=== PATIENT | female | born 1990 | race Caucasian/White ===

== ENCOUNTER 2016-07-22 06:30 | Emergency (ER) | payer BC ==
[2016-07-22 06:52] VITALS: TEMP 97.9; BMI 25.4
--- NOTE | 2016-07-22 07:00 | PDOC ---
History of Present Illness - General Chief Complaint: Pain Stated Complaint: CHEST PAIN Time Seen by Provider: 07/22/16 06:47 - History of Present Illness Initial Comments: 07/22/16 07:09 this 26-year-old woman with a history of SLE and migraine headaches presents with few hour history of substernal chest pain. Patient states that she awakened with feeling of pressure in the mid substernal area that worsens with deep breathing. She has no cough or shortness of breath. She denies fever/ chills. Patient had recently (approximately one week ago) been started on Arava for a lupus flare approximately 10 days ago. Up until now, the patient had no side effects. Last night, patient had approximately 2 ounces of vodka while socializing with friends. She states that she had no other recreational drugs. She attempted to hydrate well after drinking the alcohol. Also of note , patient was exposed to influenza: Mother, with whom patient lives was diagnosed with influenza approximately one week ago (too late to start Tamiflu) . Patient was unable to obtain prophylaxis dose of Tamiflu. Patient denies nausea/vomiting/diarrhea or other gastrointestinal symptoms. No new joint pain or swelling Past History - Past Medical History Allergies/Adverse Reactions: Allergies Allergy/AdvReac Type Severity Reaction Status Date / Time furosemide [From Lasix] Allergy Severe Anphylactoid Verified 07/22/16 06:37 Reaction. Sulfa (Sulfonamide Allergy Mild Verified 07/22/16 06:37 Antibiotics) Home Medications: Ambulatory Orders Folic Acid 1 mg PO HS 07/22/16 Leflunomide 10 mg PO HS 07/22/16 Magnesium Oxide [Magnesium] 500 mg PO 07/22/16 Prednisone [Deltasone -] 20 mg PO DAILY 07/22/16 Riboflavin 400 mg PO HS 07/22/16 Topiramate [Topamax -] 300 mg PO HS 07/22/16 Other medical history: LUPUS/MIGRAINE - Immunization History Td Vaccination: Yes Immunization Up to Date: Yes - Psycho/Social/Smoking Cessation Hx Anxiety: No Suicidal Ideation: No Smoking Status: No Smoking History: Never smoked Have you smoked in the past 12 months: No Number of Cigarettes Smoked Daily: 0 Information on smoking cessation initiated: No Hx Alcohol Use: Yes (OCCAS.) Drug/Substance Use Hx: No Substance Use Type: None Review of Systems - Review of Systems Able to Perform ROS?: Yes Comments:: 12 point review of systems is negative except for what is noted in the history of present illness *Physical Exam - Vital Signs Last Vital Signs Temp Pulse Resp BP Pulse Ox 97.9 F 93 H 16 117/69 97 07/22/16 06:48 07/22/16 06:48 07/22/16 06:48 07/22/16 06:48 07/22/16 06:48 - Physical Exam Comments: GENERAL: Adult female, alert and oriented 3, in no acute distress; she speaking in full sentences without respiratory distress Vital signs as noted with oxygenation 96% on room air HEAD: Normal with no signs of trauma. EYES: PERRLA, EOMI, sclera anicteric, conjunctiva clear. ENT: Ears normal, nares patent, oropharynx clear without exudates. Dry mucous membranes. NECK: Normal range of motion, supple without lymphadenopathy, JVD, or masses. LUNGS: Breath sounds equal, clear to auscultation bilaterally. No wheezes, and no crackles. No rubs heard; no significant chest wall tenderness HEART:Regular rate and rhythm, normal S1 and S2 without murmur, rub or gallop. ABDOMEN:.normal bowel sounds No guarding,tenderness or rebound.No masses No distention. EXTREMITIES: Normal range of motion, no edema. No clubbing or cyanosis. No erythema, or tenderness. NEUROLOGICAL: Cranial nerves II through XII grossly intact. Normal speech. No focal neurological deficits. MUSCULOSKELETAL: Back non-tender to palpation, no CVA tenderness SKIN: Warm, Dry, normal turgor, no rashes or lesions noted. Twelve-lead electrocardiogram shows normal sinus rhythm at 76 bpm. There is some sinus arrhythmia but no other arrhythmia noted. Huntley, intervals and wave forms are all normal ED Treatment Course - LABORATORY CBC & Chemistry Diagram: 07/22/16 07:16 07/22/16 07:16 Medical Decision Making - Medical Decision Making 07/22/16 07:15 This 26-year-old woman with SLE, on immunosuppressive medication presents with malaise and mid chest pain with some aspect of pleuritic component. CBC/chemistry profile/d-dimer/cardiac enzymes/urinalysis and PGU will be sent PGU/urinalysis also will be obtained. Case signed out to incoming physician at end of shift. *DC/Admit/Observation/Transfer Diagnosis at time of Disposition: Chest pain in adult - Discharge Dispostion Disposition: HOME Condition at time of disposition: Stable - Patient Instructions Printed Discharge Instructions: DI for Atypical Chest Pain Additional Instructions: Fluids, rest, Motrin If worsen return to ER
--- NOTE | 2016-07-22 07:57 | PDOC ---
*Physical Exam - Vital Signs Last Vital Signs Temp Pulse Resp BP Pulse Ox 97.9 F 93 H 16 117/69 97 07/22/16 06:48 07/22/16 06:48 07/22/16 06:48 07/22/16 06:48 07/22/16 06:48 - Physical Exam General Appearance: Yes: Nourished, Appropriately Dressed HEENT: positive: EOMI, LEILANI, Normal ENT Inspection, Normal Voice Neck: positive: Trachea midline, Normal Thyroid, Supple Respiratory/Chest: positive: Lungs Clear, Normal Breath Sounds, Other (non reproducible chst pain on palpation) Cardiovascular: positive: Regular Rhythm, Regular Rate, S1, S2 Vascular Pulses: Femoral (R): 4+, Femoral (L): 4+, Carotid (R): 4+, Carotid (L) : 4+, Dorsalis-Pedis (R): 4+, Doralis-Pedis (L): 4+ Gastrointestinal/Abdominal: positive: Normal Bowel Sounds, Flat, Soft. negative : Tender, Organomegaly, Pulsatile Mass Musculoskeletal: positive: Normal Inspection. negative: CVA Tenderness Extremity: positive: Normal Capillary Refill, Normal Inspection, Normal Range of Motion. negative: Pedal Edema, Swelling, Calf Tenderness Integumentary: positive: Normal Color, Dry, Warm Neurologic: positive: road conductor II-XII NML intact, Fully Oriented, Normal Mood/Affect , Normal Response, Motor Strength 5/5 ED Treatment Course - LABORATORY CBC & Chemistry Diagram: 07/22/16 07:16 07/22/16 07:16 Progress Note - Progress Note Progress Note: 26 y/o female with hx of SLE, presents to ER with chest pain since this morning. Patient seen and worked up by Dr. Kirkland. Patient denies SOB, fever or chills. No N/V/d/C. No leg pain. No long trips. Recent change in her SLE medication last week. Patient exposed to the FLU last week as well. D-dimer positive, Troponin negative, CT chest negative for PE or acute pathaology Discussed with pt, will discharge home with follow up with PMD Pt is in agreement with plan *DC/Admit/Observation/Transfer Diagnosis at time of Disposition: Chest pain in adult - Discharge Dispostion Disposition: HOME Condition at time of disposition: Stable Admit: No - Patient Instructions Printed Discharge Instructions: DI for Atypical Chest Pain Additional Instructions: Fluids, rest, Motrin If worsen return to ER
[2016-07-22 08:20] LABS: ALBUMIN 4.1 g/dl (3.4-5.0); ANION GAP 7 (8-16); BILIRUBIN,TOTAL 0.3 mg/dL (0.2-1.0); CALCIUM 9.3 mg/dL (8.5-10.1); CO2 26 mmol/L (21-32); COCKROFT - GAULT 88.1705; CREATININE 0.9 mg/dL (0.55-1.02); GLUCOSE,RANDOM 92 mg/dL (74-106); SGOT/AST 22 U/L (15-37); SGPT/ALT 26 U/L (12-78); TOT PROT 7.2 g/dl (6.4-8.2)
[2016-07-22 08:21] LABS: ALK PHOS 83 U/L (45-117)
[2016-07-22 08:24] LABS: CPK(DFH) 112 IU/L (26-140)
[2016-07-22 08:25] LABS: TROPONIN I (DFP) < 0.03 ng/ml (0.03-0.50)
[2016-07-22] MEDS ORDERED: ACETAMINOPHEN 325 MG TABLET (FP) PO ONE (08:51)
[2016-07-22] MEDS ORDERED: ACETAMINOPHEN 325 MG TABLET (FP) ONE (08:52)
[2016-07-22] MEDS ORDERED: SODIUM CHLORIDE 1,000 ML IV STA (08:53)
[2016-07-22 09:21] LABS: MCHC 32.6 g/dl (32.0-36.0); MEAN CELL VOLUME 86.1 fl (80-96); PLATELET COUNT 236 K/MM3 (134-434); RDW 14.8 % (11.6-15.6); WHITE BLOOD COUNT 6.9 K/mm3 (4.0-10.0)
[2016-07-22 09:22] LABS: BASOPHIL 0.7 % (0-2.0); EOSINOPHIL 0.5 % (0-4.5); MEAN PLT VOLUME 8.5 fl (7.5-11.1)
[2016-07-22] MEDS ORDERED: KETOROLAC TROMETHAMINE 30 MG/1 ML VIAL ONE (10:05)
[2016-07-22] MEDS ORDERED: KETOROLAC TROMETHAMINE 30 MG/1 ML VIAL IVPUSH ONE (10:05)
--- NOTE | 2016-07-22 10:37 | EKG ---
Test Reason : Blood Pressure : / mmHG Vent. Rate : 076 BPM Atrial Rate : 076 BPM P-R Int : 130 ms QRS Dur : 086 ms QT Int : 386 ms P-R-T Axes : 028 025 018 degrees QTc Int : 434 ms NORMAL SINUS RHYTHM WITH SINUS ARRHYTHMIA NORMAL ECG NO PREVIOUS ECGS AVAILABLE Confirmed by DEBORAH ADAMSON MD ([id number]) on 07/22/2016 10:37:29 AM Referred By: MD MAURICE Confirmed By:DEBORAH ADAMSON MD
[2016-07-22 11:31] VITALS: BP 108/70; PULSE 79
[2016-07-22 13:55] LABS: URINE APPEARANCE CLOUDY; URINE BILIRUBIN NEGATIVE (NEGATIVE); URINE BLOOD NEGATIVE (NEGATIVE); URINE COLOR YELLOW; URINE GLUCOSE (UA) NEGATIVE (NEGATIVE); URINE KETONE NEGATIVE (NEGATIVE); URINE LEUK ESTERASE NEGATIVE (NEGATIVE); URINE NITRITE NEGATIVE (NEGATIVE); URINE PROTEIN NEGATIVE (NEGATIVE); URINE UROBILINOGEN NEGATIVE E.U./dl (0.2-1.0)
== END 2016-07-22 11:32 | disposition home or self-care (01) ==
LOC: FER 06:30
PROC: 3E0333Z Introduction of Anti-inflammatory into Peripheral Vein, Percutaneous Approach (ICD-10-PCS; principal; 2016-07-22)
PROC: 3E0337Z Introduction of Electrolytic and Water Balance Substance into Peripheral Vein, Percutaneous Approach (ICD-10-PCS; 2016-07-22)
DX: R07.9 Chest pain, unspecified (principal); M32.9 Systemic lupus erythematosus, unspecified
CPT/HCPCS: 36415; 71275-TC; 80053; 81003; 82550; 84484; 84703; 85025; 85379; 87804; 93005; 99283-25

== ENCOUNTER 2016-08-19 04:48 | Emergency (ER) | payer BC ==
[2016-08-19 05:02] VITALS: BP 116/61; PULSE 94; TEMP 97.1; BMI 26.2
--- NOTE | 2016-08-19 05:06 | PDOC ---
History of Present Illness - General Chief Complaint: Pain, Acute Stated Complaint: ABDOMINAL PAIN, DIARRHEA Time Seen by Provider: 08/19/16 05:05 History Source: Patient Exam Limitations: No Limitations - History of Present Illness Initial Comments: 08/19/16 05:12 This is a 26-year-old female with history of lupus was a frequent visitor here. Patient said she woke up approximately 3 AM with right-sided abdominal pain and explosive diarrhea. Patient is had 4 episodes of diarrhea. Patient said pain is right-sided and radiates to her flank and her right groin. Patient denies any frequency or dysuria. Patient denies any hematuria. Patient denies history of similar symptoms past.. Patient denies any fevers or chills. Last time patient had any diarrhea was just prior to arrival. PAST MEDICAL HISTORY: Lupus PAST SURGICAL HISTORY: no significant history FAMILY HISTORY: no pertinant history SOCIAL HISTORY: Pt lives with family and is employed. MEDICATIONS: reviewed ALLERGIES: As per nursing notes Review of Systems General: No fevers or chills, no weakness, no weight loss HEENT: No change in vision. No sore throat,. No ear pain CardioVascular: No chest pain or shortness of breath Respiratory:No cough, or wheezing. Gastrointestinal: Nausea, diarrhea, abdominal pain. No vomiting Genitourinary: No dysuria, hematuria, or frequency Musculoskeletal: No joint or muscle pain or swelling Neurologic: No headache, vertigo, dizziness or loss of consciousness Psychiatric: nor depression Skin: No rashes or easy bruising Endocrine: no increased thirst or abnormal weight change Allergic: no skin or latex allergy All other systems reviewed and normal Exam: General: Well-nourished well-developed individual, no acute distress HEENT: Throat: Normal, tonsils normal, no erythema or exudate Neck: Supple, no meningeal signs, no lymphadenopathy Eyes::Pupils equal reactive and round, extraocular motion intact Chest: Nontender to palpation Cardiac: S1-S2 normal, regular rate and rhythm, no murmurs rubs or gallops Respiratory: Lungs clear to auscultation bilateral Abdomen: Soft, nondistended, normal bowel sounds, there is some mild tenderness on palpation right lower quadrant. There is no guarding or rebound. Extremities: Warm, dry, no cyanosis, clubbing, or edema Skin: No rashes Neuro: Alert and oriented x3, nonfocal exam, grossly intact, normal gait Psych: Normal mood and affect 08/19/16 06:36 Assessment and plan: This is a 26-year-old female who comes in complaining of abdominal pain and diarrhea. Patient given some fluid here and antiemetics. Patient also given Imodium. Patient is somewhat improved. Patient had a workup done that reveals a normal white count and normal labs and normal urinalysis. Patient is not . Patient discharged will follow-up with her primary care doctor. Past History - Past Medical History Allergies/Adverse Reactions: Allergies Allergy/AdvReac Type Severity Reaction Status Date / Time furosemide [From Lasix] Allergy Severe Anphylactoid Verified 08/19/16 04:53 Reaction. Sulfa (Sulfonamide Allergy Mild Verified 08/19/16 04:53 Antibiotics) Home Medications: Ambulatory Orders Leflunomide 10 mg PO HS 07/22/16 Magnesium Oxide [Magnesium] 500 mg PO HS 07/22/16 Prednisone [Deltasone -] 20 mg PO DAILY 07/22/16 Riboflavin 400 mg PO HS 07/22/16 Topiramate [Topamax -] 300 mg PO HS 07/22/16 Other medical history: LUPUS - Immunization History Td Vaccination: Yes Immunization Up to Date: Yes - Psycho/Social/Smoking Cessation Hx Anxiety: No Suicidal Ideation: No Smoking Status: No Smoking History: Never smoked Have you smoked in the past 12 months: No Number of Cigarettes Smoked Daily: 0 Information on smoking cessation initiated: No Hx Alcohol Use: No Drug/Substance Use Hx: No Substance Use Type: None *Physical Exam - Vital Signs Last Vital Signs Temp Pulse Resp BP Pulse Ox 97.1 F L 94 H 18 116/61 100 08/19/16 04:56 08/19/16 04:56 08/19/16 04:56 08/19/16 04:56 08/19/16 04:56 ED Treatment Course - LABORATORY CBC & Chemistry Diagram: 08/19/16 05:15 08/19/16 05:15 *DC/Admit/Observation/Transfer Diagnosis at time of Disposition: Diarrhea Qualifiers: Diarrhea type: unspecified type Qualified Code(s): R19.7 - Diarrhea, unspecified - Discharge Dispostion Disposition: HOME Condition at time of disposition: Stable Admit: No - Patient Instructions Additional Instructions: Purchase some [id number] Imodium and take as directed on the box. Return to the emergency department immediately with ANY new, persistent or worsening symptoms. Continue any medications as previously prescribed by your physician. You should follow up with your primary doctor as soon as possible regarding today's emergency department visit. . Please make sure your doctor reviews the results of your emergency evaluation. Thank you for coming to the Emergency Department today for your care. It was a pleasure to see you today. Please note that your evaluation is INCOMPLETE until you follow-up with your doctor.
[2016-08-19] MEDS ORDERED: ONDANSETRON 4 MG/2 ML VIAL IVPB ONE (05:10)
[2016-08-19] MEDS ORDERED: morphine CARPU-JECT 2 MG/1 ML DISP.SYRIN IVPUSH ONE (05:10)
[2016-08-19] MEDS ORDERED: SODIUM CHLORIDE 1,000 ML IV ONE (05:10)
[2016-08-19] MEDS ORDERED: ONDANSETRON 4 MG/2 ML VIAL ONE (05:19)
[2016-08-19] MEDS ORDERED: morphine CARPU-JECT 2 MG/1 ML DISP.SYRIN ONE (05:19)
[2016-08-19 05:56] LABS: BASOPHIL 1.1 % (0-2.0); EOSINOPHIL 3.4 % (0-4.5); MCH 27.4 pg (25.7-33.7); MCHC 31.9 g/dl (32.0-36.0); MEAN CELL VOLUME 85.9 fl (80-96); NEUTROPHILS 51.2 % (42.8-82.8); PLATELET COUNT 230 K/MM3 (134-434); RDW 13.3 % (11.6-15.6); WHITE BLOOD COUNT 6.5 K/mm3 (4.0-10.0)
[2016-08-19 05:59] LABS: URINE APPEARANCE CLOUDY; URINE BILIRUBIN NEGATIVE (NEGATIVE); URINE COLOR AMBER; URINE GLUCOSE (UA) NEGATIVE (NEGATIVE); URINE KETONE NEGATIVE (NEGATIVE); URINE LEUK ESTERASE NEGATIVE (NEGATIVE); URINE NITRITE NEGATIVE (NEGATIVE); URINE PROTEIN NEGATIVE (NEGATIVE); URINE UROBILINOGEN NEGATIVE E.U./dl (0.2-1.0)
[2016-08-19 06:01] LABS: URINE BLOOD 1+ (NEGATIVE)
[2016-08-19 06:24] LABS: ALBUMIN 3.5 g/dl (3.4-5.0); ALK PHOS 72 U/L (45-117); ANION GAP 5 (8-16); BILIRUBIN,TOTAL 0.3 mg/dL (0.2-1.0); CALCIUM 8.6 mg/dL (8.5-10.1); CO2 27 mmol/L (21-32); GLUCOSE,RANDOM 83 mg/dL (74-106); SGOT/AST 19 U/L (15-37); SGPT/ALT 22 U/L (12-78); TOT PROT 6.1 g/dl (6.4-8.2)
[2016-08-19] MEDS ORDERED: LOPERAMIDE HCL 2 MG CAPSULE PO ONE (06:34)
[2016-08-19] MEDS ORDERED: HYOSCYAMINE SULFATE 0.125 MG *ODT PO ONE (06:35)
[2016-08-19] MEDS ORDERED: HYOSCYAMINE SULFATE 0.125 MG *ODT ONE (06:36)
[2016-08-19] MEDS ORDERED: LOPERAMIDE HCL 2 MG CAPSULE ONE (06:37)
== END 2016-08-19 06:47 | disposition home or self-care (01) ==
LOC: FER 04:48
PROC: 3E033NZ Introduction of Analgesics, Hypnotics, Sedatives into Peripheral Vein, Percutaneous Approach (ICD-10-PCS; principal; 2016-08-19)
PROC: 3E033GC Introduction of Other Therapeutic Substance into Peripheral Vein, Percutaneous Approach (ICD-10-PCS; 2016-08-19)
PROC: 3E0337Z Introduction of Electrolytic and Water Balance Substance into Peripheral Vein, Percutaneous Approach (ICD-10-PCS; 2016-08-19)
DX: R19.7 Diarrhea, unspecified (principal)
CPT/HCPCS: 36415; 80053; 81003; 81015; 83690; 84703; 85025; 87086; 99283-25

== ENCOUNTER 2017-05-07 08:56 | Inpatient (IN) | payer OTHER ==
--- NOTE | 2017-05-07 09:15 | PDOC ---
History of Present Illness - General Chief Complaint: Nausea/Vomiting Stated Complaint: back pain,nausea,vom Time Seen by Provider: 05/07/17 09:14 - History of Present Illness Initial Comments: 05/07/17 10:40 Chief complaint: Nausea and vomiting History of present illness: Since yesterday, the patient is experienced mild nausea, vomiting, diffuse muscle and joint pains, right sided posterior chest pain which is pleuritic in nature and bilateral low back pain. She has taken no new medications for these symptoms other than Zofran for nausea Review of systems: Denies fever/chills, URI symptoms, sore throat, cough, shortness of breath, hematemesis, melena, bloody stool, diarrhea, vaginal bleeding or discharge. Admits mild dysuria and frequency. Past medical history: Lupus with primarily joint involvement in the past, has been on multiple medications that were poorly tolerated, is under the care of a survey project manager, most recent medication has been prednisone 5 mg and CellCept. Works as a nurse, direct patient care, but no known exposure to specific illnesses. Menses regular, no prior pregnancies, due for menstruation now. Social history: Works as a nurse, denies tobacco alcohol or nonprescription drugs, ambulatory and without significant disability. Family history: Reviewed and noncontributory including early coronary artery disease, metabolic diseases including diabetes, rheumatologic disease, and cancer. Physical exam: Alert oriented 3 well-developed well-nourished no acute distress Afebrile, vital signs normal No pallor or icterus. PERRLA, fundi benign, ENT clear Neck supple without bruit mass or nodes Lungs with possible decreased breath sounds at the right base and dullness to percussion. No wheezes rales or rhonchi CV S1 and S2 normal without murmur rub or gallop pulses full and symmetric no JVD or edema Abdomen soft nontender without mass or organomegaly. Bowel sounds normal Extremities no CCE. Specifically, no acute joint inflammation, erythema, or heat. The patient complains of stiffness in the fingers bilaterally. Neurological C2 to 12 intact. No focal sensory or motor deficits. Gait stable and unimpaired Skin clear, no rash, adequate turgor and wet mucous membranes Impression: This may be a flareup of lupus or an acute viral illness, possibly gastroenteritis with chronic intermittent muscle and joint pains. No pleuritic chest pain could be due to pneumonia or lupus involvement, pleurisy. Urinary tract symptoms could signify UTI. Plan: CBC chemistries and sedimentation rate, urinalysis and urine culture, chest x-ray, and further medical evaluation Past History - Past Medical History Allergies/Adverse Reactions: Allergies Allergy/AdvReac Type Severity Reaction Status Date / Time furosemide [From Lasix] Allergy Severe Anphylactoid Verified 05/07/17 08:58 Reaction. Sulfa (Sulfonamide Allergy Mild Verified 05/07/17 08:58 Antibiotics) Home Medications: Ambulatory Orders predniSONE [Deltasone -] 5 mg PO DAILY 07/22/16 Mycophenolate Mofetil [Cellcept] 2,000 mg PO DAILY 05/07/17 Ondansetron [Zofran *Odt*] 8 mg SL PRN PRN 05/07/17 COPD: No - Immunization History Td Vaccination: Yes Immunization Up to Date: Yes - Suicide/Smoking/Psychosocial Hx Smoking Status: No Smoking History: Never smoked Have you smoked in the past 12 months: No Number of Cigarettes Smoked Daily: 0 Hx Alcohol Use: No Drug/Substance Use Hx: No Substance Use Type: None ED Treatment Course - LABORATORY CBC & Chemistry Diagram: 05/07/17 10:04 05/07/17 09:59 Medical Decision Making - Medical Decision Making 05/07/17 11:08 Patient states that she was experiencing a migraine headache on the right side, usual manifestations, but did not want any treatment Subsequently, developed halting speech and generalized tremor which appeared to be seizure activity. She became confused and unable to respond to questions in a coherent manner. Ativan was administered and CT was ordered. Questionable migraine-related neurological symptoms versus exacerbation of lupus with TAPEMAN involvement. 05/07/17 11:28 Chest x-ray is clear. The patient has had similar pain in the past, with elevated d-dimer, but chest CT for pulmonary embolus was negative - June 2016. 05/07/17 12:27 Patient still with mild to moderate headache, but neurological symptoms resolved , alert and coherent. Head CT is negative. Despite frequent migraines in the past, and her occupation as a nurse, she is not sure or is unwilling to provide information regarding what medication have been helpful in the past. Discussed with her the use of anti-inflammatories or narcotics. She wishes to try Toradol first 05/07/17 14:33 Patient states that she is still having a headache and still feels left-sided weakness. She does not feel that she can stand or ambulate. CBC, chemistries, and sedimentation rate without significant abnormalities. Admit [facility] for observation and further treatment. Spoke with hospitalist, Dr. Reeder, and consultation called to neurology, Dr. Montejo. Patient clinically stable, hemodynamically stable, at time of transfer. 05/07/17 15:22 05/07/17 18:01 *DC/Admit/Observation/Transfer Diagnosis at time of Disposition: Migraine Qualifiers: Migraine type: hemiplegic Status migrainosus presence: without status migrainosus Intractability: not intractable Qualified Code(s): G43.409 - Hemiplegic migraine, not intractable, without status migrainosus - Discharge Dispostion Admit: Yes - Referrals - Patient Instructions - Post Discharge Activity
[2017-05-07 09:43] VITALS: BMI 24.7
[2017-05-07 10:19] LABS: BASO % 0.9 % (0-2.0); EOS % 1.4 % (0-4.5); HEMATOCRIT 39.2 % (32.4-45.2); HEMOGLOBIN 13.1 GM/dl (10.7-15.3); LYMPH % 23.5 % (8-40); MCH 27.7 pg (25.7-33.7); MCHC 33.5 g/dl (32.0-36.0); MEAN CELL VOLUME 82.7 fl (80-96); MEAN PLT VOLUME 8.4 fl (7.5-11.1); MONO % 6.4 % (3.8-10.2); NEUT % 67.8 % (42.8-82.8); PLATELET COUNT 181 K/MM3 (134-434); RBC 4.74 M/mm3 (3.60-5.2); RDW 13.6 % (11.6-15.6); WHITE BLOOD COUNT 7.7 K/mm3 (4.0-10.8)
[2017-05-07 10:29] LABS: URINE APPEARANCE Clear; URINE BILIRUBIN Negative (NEGATIVE); URINE BLOOD 1+ (NEGATIVE); URINE COLOR YELLOW; URINE GLUCOSE (UA) Negative (NEGATIVE); URINE KETONE Negative (NEGATIVE); URINE LEUK ESTERASE Negative (NEGATIVE); URINE NITRITE Negative (NEGATIVE); URINE PROTEIN Negative (NEGATIVE); URINE UROBILINOGEN 0.2 (0.2-1.0)
[2017-05-07 10:44] LABS: ALBUMIN 3.6 g/dl (3.5-5.0); ALK PHOS 36 U/L (32-92); ANION GAP 4 (8-16); BILIRUBIN,TOTAL 0.6 mg/dl (0.2-1.0); BLOOD UREA NITROGEN 15 mg/dl (7-18); CALCIUM 8.4 mg/dl (8.4-10.2); CHLORIDE 105 mmol/L (98-107); CO2 26 mmol/L (22-28); CREATININE 0.9 mg/dl (0.6-1.3); GLUCOSE,RANDOM 85 mg/dl (74-106); SGOT/AST 20 U/L (10-42); SGPT/ALT 14 U/L (10-40); SODIUM 135 mmol/L (136-145); TOT PROT 5.5 g/dl (6.4-8.3)
[2017-05-07] MEDS ORDERED: LORazepam 2 MG/ML SDV VIAL ONE (11:03)
[2017-05-07 11:55] LABS: EPI CELLS FEW /HPF; URINE WBC 0-3 (0-5)
[2017-05-07 11:56] LABS: URINE BACTERIA NONE SEEN /hpf (NEGATIVE)
[2017-05-07] MEDS ORDERED: ONDANSETRON 4 MG/2 ML VIAL IVPB ONE (12:18)
[2017-05-07] MEDS ORDERED: KETOROLAC TROMETHAMINE 30 MG/1 ML VIAL IVPUSH ONE (12:18)
[2017-05-07] MEDS ORDERED: KETOROLAC TROMETHAMINE 30 MG/1 ML VIAL ONE (12:28)
[2017-05-07] MEDS ORDERED: ONDANSETRON 4 MG/2 ML VIAL ONE (12:28)
[2017-05-07] MEDS ORDERED: ACETAMINOPHEN INJECTION 100 ML IVPB ONE (13:46)
[2017-05-07] MEDS ORDERED: morphine CARPU-JECT 2 MG/1 ML DISP.SYRIN IVPUSH ONE (15:06)
[2017-05-07] MEDS ORDERED: morphine CARPU-JECT 2 MG/1 ML DISP.SYRIN ONE (15:06)
[2017-05-07] MEDS ORDERED: DEXTROSE 5%-NORMAL SALINE 1,000 ML IV SCH (15:15)
[2017-05-07] MEDS ORDERED: amLODIPine BESYLATE 5 MG TABLET (FP) PO SCH (18:00)
[2017-05-07] MEDS ORDERED: HYDROmorphone HCL CARPU-JECT 1 MG/1 ML DISP.SYRIN IVPUSH ONE (18:18)
[2017-05-07] MEDS ORDERED: morphine SULFATE 4 MG/ML VIAL IVPUSH ONE ×2 (18:44→22:09)
--- NOTE | 2017-05-07 18:55 | HP ---
<Estrada Davidson - Last Filed: 05/07/17 19:04> CHIEF COMPLAINT: severe headache 12/03 PCP: HISTORY OF PRESENT ILLNESS: The patient is a 27 yo f w/ PMH lupus on cellcept at home and unable to tolerate any other medication who presented to the ER w/ complaints of generalized pain. During the course of her evaluation, the patient developed stuttering speech and became incoherent. She then developed left sided hemiparesis and lost vision in her left eye. 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 PAST SURGICAL HISTORY: none Social History: Smoking: denies Alcohol: denies Drugs: denies Family History: non-contributory Allergies furosemide [From Lasix] Allergy (Severe, Verified 05/07/17 08:58) Anphylactoid Reaction. Sulfa (Sulfonamide Antibiotics) Allergy (Mild, Verified 05/07/17 08:58) HOME MEDICATIONS: Home Medications Medication Instructions Recorded predniSONE [Deltasone -] 5 mg PO DAILY 07/22/16 Mycophenolate Mofetil [Cellcept] 2,000 mg PO DAILY 05/07/17 Ondansetron [Zofran *Odt*] 8 mg SL PRN PRN 05/07/17 REVIEW OF SYSTEMS CONSTITUTIONAL: Absent: fever, chills, diaphoresis, generalized weakness, malaise, loss of appetite, weight change HEENT: Absent: rhinorrhea, nasal congestion, throat pain, throat swelling, difficulty swallowing, mouth swelling, ear pain, eye pain, visual changes CARDIOVASCULAR: Absent: chest pain, syncope, palpitations, irregular heart rate, lightheadedness , peripheral edema RESPIRATORY: Absent: cough, shortness of breath, dyspnea with exertion, orthopnea, wheezing, stridor, hemoptysis GASTROINTESTINAL: Absent: abdominal pain, abdominal distension, nausea, vomiting, diarrhea, constipation, melena, hematochezia GENITOURINARY: Absent: dysuria, frequency, urgency, hesitancy, hematuria, flank pain, genital pain MUSCULOSKELETAL: Absent: myalgia, arthralgia, joint swelling, back pain, neck pain SKIN: Absent: rash, itching, pallor HEMATOLOGIC/IMMUNOLOGIC: Absent: easy bleeding, easy bruising, lymphadenopathy, frequent infections ENDOCRINE: Absent: unexplained weight gain, unexplained weight loss, heat intolerance, cold intolerance NEUROLOGIC: Absent: headache, focal weakness or paresthesias, dizziness, unsteady gait, seizure, mental status changes, bladder or bowel incontinence PSYCHIATRIC: Absent: anxiety, depression, suicidal or homicidal ideation, hallucinations. PHYSICAL EXAMINATION Vital Signs - 24 hr 05/07/17 05/07/17 05/07/17 08:58 11:05 11:11 Temperature 97.9 F Pulse Rate 79 Pulse Rate [ 73 74 Right] Respiratory 20 16 16 Rate Blood Pressure 105/64 Blood Pressure 112/76 100/61 [Left Arm] O2 Sat by Pulse 100 100 100 Oximetry (%) 05/07/17 05/07/17 05/07/17 12:27 12:59 13:30 Temperature Pulse Rate Pulse Rate [ 65 66 64 Right] Respiratory 16 16 16 Rate Blood Pressure Blood Pressure 108/52 105/54 100/55 [Left Arm] O2 Sat by Pulse 100 100 100 Oximetry (%) 05/07/17 05/07/17 05/07/17 15:10 15:14 16:43 Temperature Pulse Rate Pulse Rate [ 77 68 60 Right] Respiratory 16 16 16 Rate Blood Pressure Blood Pressure 107/55 97/45 101/51 [Left Arm] O2 Sat by Pulse 100 100 100 Oximetry (%) GENERAL: HEAD: Normal with no signs of trauma. LUNGS: Breath sounds equal, clear to auscultation bilaterally. No wheezes, and no crackles. No accessory muscle use. HEART: Regular rate and rhythm, normal S1 and S2 without murmur, rub or gallop. ABDOMEN: Soft, there is tenderness to palpation in the LLQ and in the suprapubic area. not distended, normoactive bowel sounds, no guarding, no rebound, no masses. Tenderness to palpation in the right flank. No hepatomegaly or splenomegaly. UPPER EXTREMITIES: 2+ pulses, warm, well-perfused. No cyanosis. No clubbing. No peripheral edema. LOWER EXTREMITIES: 2+ pulses, warm, well-perfused. No calf tenderness. No peripheral edema. NEUROLOGICAL: Strength 4/5 on left. Left sided flaccid hemiparesis in both arm and leg. Patient refuses parts of the neuro exam 2/2 photophobia and pain on movement. PSYCHIATRIC: Cooperative. Good eye contact. Appropriate mood and affect. SKIN: Warm and clammy. Laboratory Results - last 24 hr 05/07/17 05/07/17 05/07/17 09:38 09:38 09:59 WBC RBC Hgb Hct MCV MCH MCHC RDW Plt Count MPV Neutrophils % Lymphocytes % Monocytes % Eosinophils % Basophils % ESR Sodium 135 L Potassium 4.0 Chloride 105 Carbon Dioxide 26 Anion Gap 4 L BUN 15 D Creatinine 0.9 Creat Clearance w eGFR > 60 Random Glucose 85 D Calcium 8.4 Total Bilirubin 0.6 AST 20 ALT 14 Alkaline Phosphatase 36 D Total Protein 5.5 L D Albumin 3.6 Urine Color Yellow Urine Appearance Clear Urine pH 6.0 Ur Specific [place] 1.025 Urine Protein Negative Urine Glucose (UA) Negative Urine Ketones Negative Urine Blood 1+ H Urine Nitrite Negative Urine Bilirubin Negative Urine Urobilinogen 0.2 Ur Leukocyte Esterase Negative Urine RBC 2-3 Urine WBC 0-3 Ur Epithelial Cells Few Urine Bacteria None seen Urine HCG, Qual Negative 05/07/17 05/07/17 09:59 10:04 WBC 7.7 D RBC 4.74 Hgb 13.1 D Hct 39.2 MCV 82.7 MCH 27.7 MCHC 33.5 RDW 13.6 Plt Count 181 MPV 8.4 Neutrophils % 67.8 Lymphocytes % 23.5 Monocytes % 6.4 Eosinophils % 1.4 Basophils % 0.9 ESR 5 Sodium Potassium Chloride Carbon Dioxide Anion Gap BUN Creatinine Creat Clearance w eGFR Random Glucose Calcium Total Bilirubin AST ALT Alkaline Phosphatase Total Protein Albumin Urine Color Urine Appearance Urine pH Ur Specific [place] Urine Protein Urine Glucose (UA) Urine Ketones Urine Blood Urine Nitrite Urine Bilirubin Urine Urobilinogen Ur Leukocyte Esterase Urine RBC Urine WBC Ur Epithelial Cells Urine Bacteria Urine HCG, Qual ASSESSMENT/PLAN: The patient is a 27 yo f w/ PMH Lupus who is admitted for debilitating migraine w/ hemiparesis #Debilitating migraine w/ hemiparesis and loss of vision in left eye. -patient w/ flaccid paralysis on left -2mg morphine IV -Reached out to patient's neurologist at [facility], Dr. Perez, who accepted the patient for transfer to his service. Visit type - Emergency Visit Emergency Visit: Yes ED Registration Date: 05/07/17 Care time: The patient presented to the Emergency Department on the above date and was hospitalized for further evaluation of their emergent condition. - New Patient This patient is new to me today: Yes Date on this admission: 05/07/17 - Critical Care Critical Care patient: No Hospitalist Screening - Colonoscopy Questionnaire Colonoscopy Questionnaire: Colonoscopy Questionnaire - Patient: 50 - 75 years old and never had a screening colonoscopy: Unknown History of colon or rectal polyps, or CA: Unknown History of IBD, Crohn's disease or UC: Unknown History of abdominal radiation therapy as a child: Unknown - Relative: 1 with colon or rectal CA, or polyps at age 60 or younger: Unknown Colon or rectal CA diagnosed at age 45 or younger: Unknown Multiple relatives with colon or rectal CA: Unknown - Outcome: Screening Result: Negative Screen <Bruno Reeder - Last Filed: 05/07/17 19:39> Patient is see and examined with the resident. Patient with PMHx of Lupus on Cellcept and Prednisone 5mg po daily presented at [place] [facility]. c/o Having severe headache 10/10 with loss of left side vision , and left side hemiparesis , Lights are severely bothering her. Patient is having difficulty with speech. Able to communicate with writing down on a piece of paper her concerns and complains. As per patient had a similar episode before, stated that she sees and knows her well Dr.Stephen Perez. Transfer center is arranged to transfer the patient to [facility] under Dr.Mark Cordero's service. Case was discussed in details with by my resident Ehsan Izaguirre. Werner Catheter was placed since patient is having difficulty with urination, also given 2mg of Morphine for severe headache. Patient is getting transferred by [facility]. Home Medications Medication Instructions Recorded predniSONE [Deltasone -] 5 mg PO DAILY 07/22/16 Mycophenolate Mofetil [Cellcept] 2,000 mg PO DAILY 05/07/17 Ondansetron [Zofran *Odt*] 8 mg SL PRN PRN 05/07/17 Current Medications Generic Name Dose Route Start Last Admin Trade Name Freq PRN Reason Stop Dose Admin Amlodipine Besylate 5 mg 05/07/17 18:00 Norvasc - PO DAILY STEPHANIE Dextrose/Sodium Chloride 1,000 mls @ 100 mls/hr 05/07/17 15:15 D5-Ns - IV ASDIR STEPHANIE Mycophenolate Mofetil 2,000 mg 05/08/17 10:00 Cellcept - PO DAILY STEPHANIE Ondansetron HCl 4 mg 05/07/17 15:10 Zofran Injection IVPUSH Q6H PRN NAUSEA Prednisone 5 mg 05/08/17 10:00 Deltasone - PO DAILY [facility] Vital Signs Temperature 97.9 F 05/07/17 08:58 Pulse Rate 60 05/07/17 16:43 Respiratory Rate 16 05/07/17 16:43 Blood Pressure 101/51 05/07/17 16:43 O2 Sat by Pulse Oximetry (%) 100 05/07/17 16:43 CBCD WBC 7.7 K/mm3 (4.0-10.8) D 05/07/17 10:04 RBC 4.74 M/mm3 (3.60-5.2) 05/07/17 10:04 Hgb 13.1 GM/dl (10.7-15.3) D 05/07/17 10:04 Hct 39.2 % (32.4-45.2) 05/07/17 10:04 MCV 82.7 fl (80-96) 05/07/17 10:04 MCHC 33.5 g/dl (32.0-36.0) 05/07/17 10:04 RDW 13.6 % (11.6-15.6) 05/07/17 10:04 Plt Count 181 K/MM3 (134-434) 05/07/17 10:04 MPV 8.4 fl (7.5-11.1) 05/07/17 10:04 CMP Sodium 135 mmol/L (136-145) L 05/07/17 09:59 Potassium 4.0 mmol/L (3.5-5.1) 05/07/17 09:59 Chloride 105 mmol/L (98-107) 05/07/17 09:59 Carbon Dioxide 26 mmol/L (22-28) 05/07/17 09:59 Anion Gap 4 (8-16) L 05/07/17 09:59 BUN 15 mg/dl (7-18) D 05/07/17 09:59 Creatinine 0.9 mg/dl (0.6-1.3) 05/07/17 09:59 Creat Clearance w eGFR > 60 (>60) 05/07/17 09:59 Random Glucose 85 mg/dl (74-106) D 05/07/17 09:59 Calcium 8.4 mg/dl (8.4-10.2) 05/07/17 09:59 Total Bilirubin 0.6 mg/dl (0.2-1.0) 05/07/17 09:59 AST 20 U/L (10-42) 05/07/17 09:59 ALT 14 U/L (10-40) 05/07/17 09:59 Alkaline Phosphatase 36 U/L (32-92) D 05/07/17 09:59 Total Protein 5.5 g/dl (6.4-8.3) L D 05/07/17 09:59 Albumin 3.6 g/dl (3.5-5.0) 05/07/17 09:59 Correction: PE: Patient had no good eye contact due to having severe headache, was not able to look at the light. covered her eyes with her cap. Also was having hesitancy with urination , werner was placed. Hospitalist Screening - Colonoscopy Questionnaire Colonoscopy Questionnaire: Colonoscopy Questionnaire
[2017-05-07] MEDS: ONDANSETRON 4 MG/2 ML VIAL IVPUSH PRN (23:20)
[2017-05-08] MEDS: ONDANSETRON 4 MG/2 ML VIAL IVPUSH PRN ×2 (04:21→09:05)
[2017-05-08] MEDS ORDERED: ACETAMINOPHEN 325 MG TABLET (FP) PO PRN (04:31)
[2017-05-08] MEDS ORDERED: NAPROXEN 500 MG TABLET (FP) PO ONE (05:45)
[2017-05-08 07:06] LABS: BASO % 0.4 % (0-2.0); HEMOGLOBIN 12.6 GM/dL (10.7-15.3); LYMPH % 34.3 % (8-40); MCH 27.9 pg (25.7-33.7); MCHC 33.1 g/dl (32.0-36.0); MEAN CELL VOLUME 84.1 fl (80-96); MEAN PLT VOLUME 8.9 fl (7.5-11.1); MONO % 8.5 % (3.8-10.2); NEUT % 54.8 % (42.8-82.8); PLATELET COUNT 152 K/MM3 (134-434); RBC 4.51 M/mm3 (3.60-5.2); RDW 14.5 % (11.6-15.6); WHITE BLOOD COUNT 6.5 K/mm3 (4.0-10.0)
[2017-05-08 07:07] LABS: ALBUMIN 2.9 g/dl (3.4-5.0); ANION GAP 12 (8-16); BILIRUBIN,TOTAL 0.3 mg/dL (0.2-1.0); BLOOD UREA NITROGEN 16 mg/dL (7-18); CALCIUM 8.1 mg/dL (8.5-10.1); CHLORIDE 108 mmol/L (98-107); CO2 23 mmol/L (21-32); CREATININE 1.1 mg/dL (0.55-1.02); GLUCOSE,RANDOM 78 mg/dL (74-106); MAGNESIUM 2.2 mg/dL (1.8-2.4); POTASSIUM 4.3 mmol/L (3.5-5.1); SGPT/ALT 16 U/L (12-78); SODIUM 143 mmol/L (136-145); TOT PROT 5.5 g/dl (6.4-8.2)
[2017-05-08 07:08] LABS: ALK PHOS 48 U/L (45-117); SGOT/AST 13 U/L (15-37)
[2017-05-08] MEDS: morphine SULFATE 4 MG/ML VIAL IVPUSH PRN ×2 (08:56→12:30)
--- NOTE | 2017-05-08 09:00 | CON.NEURO ---
Consult - History of Present Illness History of Present Illness: 27 yo f w/ PMH lupus on cellcept at home and unable to tolerate any other medication who presented to the ER w/ complaints of generalized pain. During the course of her evaluation, the patient developed stuttering speech and became incoherent. She then developed left sided hemiparesis and lost vision in her left eye. As per ER HX hx of hemiplegic migraine CT HD IMPRESSION: No interval change from 12/27/[address] No evidence of acute intracranial hemorrhage or calvarial fracture. No mass effects or hydrocephalus. - History Source History Provided By: Patient, Medical Record - Alcohol/Substance Use Hx Alcohol Use: No - Smoking History Smoking history: Never smoked Have you smoked in the past 12 months: No Aproximately how many cigarettes per day: 0 Home Medications - Allergies Allergies/Adverse Reactions: Allergies Allergy/AdvReac Type Severity Reaction Status Date / Time furosemide [From Lasix] Allergy Severe Anphylactoid Verified 05/07/17 08:58 Reaction. Sulfa (Sulfonamide Allergy Mild Verified 05/07/17 08:58 Antibiotics) - Home Medications Home Medications: Ambulatory Orders predniSONE [Deltasone -] 5 mg PO DAILY 07/22/16 Mycophenolate Mofetil [Cellcept] 2,000 mg PO DAILY 05/07/17 Ondansetron [Zofran *Odt*] 8 mg SL PRN PRN 05/07/17 Physical Exam-Neuro Vital Signs: Vital Signs Temperature 98.3 F 05/08/17 06:00 Pulse Rate 78 05/08/17 06:00 Respiratory Rate 16 05/08/17 06:00 Blood Pressure 101/58 05/08/17 06:00 O2 Sat by Pulse Oximetry (%) 98 05/07/17 21:00 Labs: CBC, BMP 05/08/17 05:35 05/08/17 05:35 Imaging - Results Cat Scan: Report Reviewed, Image Reviewed
[2017-05-08] MEDS ORDERED: MYCOPHENOLATE MOFETIL 500 MG TABLET PO SCH (10:00)
[2017-05-08] MEDS ORDERED: predniSONE 5 MG TABLET (UD) PO SCH (10:00)
--- NOTE | 2017-05-08 12:38 | EKG ---
Test Reason : Blood Pressure : / mmHG Vent. Rate : 062 BPM Atrial Rate : 062 BPM P-R Int : 138 ms QRS Dur : 084 ms QT Int : 378 ms P-R-T Axes : 067 024 014 degrees QTc Int : 383 ms NORMAL SINUS RHYTHM WITH SINUS ARRHYTHMIA CANNOT RULE OUT ANTERIOR INFARCT , AGE UNDETERMINED ABNORMAL ECG WHEN COMPARED WITH ECG OF 22-JUL-2016 06:44, QT HAS SHORTENED Confirmed by STEPHANY HENDRIX, MARIA D ([id number]) on 05/08/2017 12:37:38 PM Referred By: Confirmed By:MARIA D HAMMOND MD
[2017-05-08 12:42] VITALS: BP 113/58; PULSE 71; TEMP 98.4
--- NOTE | 2017-05-08 16:50 | PN ---
Teaching Attending Note Name of Resident: Estrada Davidson ATTENDING PHYSICIAN STATEMENT I saw and evaluated the patient. I reviewed the resident's note and discussed the case with the resident. I agree with the resident's findings and plan as documented. SUBJECTIVE: Patient continued to have severe headache, slightly improved her headache, and speech was slightly better. OBJECTIVE: Vital Signs Temperature 98.4 F 05/08/17 12:42 Pulse Rate 71 05/08/17 12:42 Respiratory Rate 18 05/08/17 12:42 Blood Pressure 113/58 05/08/17 12:42 O2 Sat by Pulse Oximetry (%) 99 05/08/17 09:00 CBCD WBC 6.5 K/mm3 (4.0-10.0) D 05/08/17 05:35 RBC 4.51 M/mm3 (3.60-5.2) 05/08/17 05:35 Hgb 12.6 GM/dL (10.7-15.3) 05/08/17 05:35 Hct 38.0 % (32.4-45.2) 05/08/17 05:35 MCV 84.1 fl (80-96) 05/08/17 05:35 MCHC 33.1 g/dl (32.0-36.0) 05/08/17 05:35 RDW 14.5 % (11.6-15.6) 05/08/17 05:35 Plt Count 152 K/MM3 (134-434) D 05/08/17 05:35 MPV 8.9 fl (7.5-11.1) 05/08/17 05:35 CMP Sodium 143 mmol/L (136-145) 05/08/17 05:35 Potassium 4.3 mmol/L (3.5-5.1) 05/08/17 05:35 Chloride 108 mmol/L (98-107) H 05/08/17 05:35 Carbon Dioxide 23 mmol/L (21-32) 05/08/17 05:35 Anion Gap 12 (8-16) 05/08/17 05:35 BUN 16 mg/dL (7-18) 05/08/17 05:35 Creatinine 1.1 mg/dL (0.55-1.02) H 05/08/17 05:35 Creat Clearance w eGFR 59.58 (>60) 05/08/17 05:35 Random Glucose 78 mg/dL (74-106) 05/08/17 05:35 Calcium 8.1 mg/dL (8.5-10.1) L 05/08/17 05:35 Total Bilirubin 0.3 mg/dL (0.2-1.0) D 05/08/17 05:35 AST 13 U/L (15-37) L 05/08/17 05:35 ALT 16 U/L (12-78) 05/08/17 05:35 Alkaline Phosphatase 48 U/L (45-117) 05/08/17 05:35 Total Protein 5.5 g/dl (6.4-8.2) L 05/08/17 05:35 Albumin 2.9 g/dl (3.4-5.0) L 05/08/17 05:35 Home Medications Medication Instructions Recorded predniSONE [Deltasone -] 5 mg PO DAILY 07/22/16 Mycophenolate Mofetil [Cellcept] 2,000 mg PO DAILY 05/07/17 Ondansetron [Zofran *Odt*] 8 mg SL PRN PRN 05/07/17 PE: per resident's note, continues to cover her eyes under her cap since light is bothering her eyes. ASSESSMENT AND PLAN: # Acute severe exacerbation of migraine headache with cva like symptoms as per patient had an similar episode in the past, called the transfer center and patient was able to be transferred out under Dr.Mark Cordero's service. Since this patient is his patient and they have treated her with a similar headache. # Hx of Lupus on Cellcept. Patient is being transferred out to [facility]
--- NOTE | 2017-05-08 20:06 | DS ---
Physical Exam: SUBJECTIVE: Patient seen and examined at bedside. Able to talk this am. Still complains of headache. OBJECTIVE: Vital Signs Period Temp Pulse Resp BP Sys/Mckay Pulse Ox Last 24 Hr 98.2 F-98.5 F 64-78 16-18 101-115/54-69 98-99 PHYSICAL EXAM GENERAL: The patient is lying in bed with her hat pulled over her head, covering her eyes. SHe is able to speak in short sentences. LUNGS: Breath sounds equal, clear to auscultation bilaterally, no wheezes, no crackles, no accessory muscle use. HEART: Regular rate and rhythm, S1, S2 without murmur, rub or gallop. ABDOMEN: Soft, nontender, nondistended, normoactive bowel sounds, no guarding, no rebound, no hepatosplenomegaly, no masses. EXTREMITIES: 2+ pulses, warm, well-perfused, no edema. NEUROLOGICAL: Strength 4/5 on right side. Strength 1/5 in left arm and 0/5 in left lower limb. SKIN: Warm, dry, normal turgor, no rashes or lesions noted. LABS Laboratory Results - last 24 hr 05/08/17 05/08/17 05:35 05:35 WBC 6.5 D RBC 4.51 Hgb 12.6 Hct 38.0 MCV 84.1 MCH 27.9 MCHC 33.1 RDW 14.5 Plt Count 152 D MPV 8.9 Neutrophils % 54.8 Lymphocytes % 34.3 Monocytes % 8.5 Eosinophils % 2.0 Basophils % 0.4 Sodium 143 Potassium 4.3 Chloride 108 H Carbon Dioxide 23 Anion Gap 12 BUN 16 Creatinine 1.1 H Creat Clearance w eGFR 59.58 Random Glucose 78 Calcium 8.1 L Phosphorus 4.0 Magnesium 2.2 Total Bilirubin 0.3 D AST 13 L ALT 16 Alkaline Phosphatase 48 Total Protein 5.5 L Albumin 2.9 L HOSPITAL COURSE: Date of Admission:05/07/17 The patient is a 27 yo f w/ PMH lupus on cellcept at home and unable to tolerate any other medication who presented to the ER w/ complaints of generalized pain. During the course of her evaluation, the patient developed stuttering speech and became incoherent. She then developed left sided hemiparesis and lost vision in her left eye. A CT of the head was negative. Neurology and rheumatology were consulted. The patient was treated with morphine , zofran, ativan, toradol and naprosyn. The patient's neurologist, Dr. Perez was contacted and arrangements were made to transfer the patient to [facility] where her case is better known. She was kept overnight and transferred the next day. Date of Discharge: 05/08/17 Minutes to complete discharge: 20 Discharge Summary Reason For Visit: MIGRAINE; HEMIPLEGIA Condition: Stable - Instructions Disposition: TRANSFER ACUTE CARE/OTHER HOSP - Home Medications Comprehensive Discharge Medication List: Ambulatory Orders predniSONE [Deltasone -] 5 mg PO DAILY 07/22/16 Mycophenolate Mofetil [Cellcept] 2,000 mg PO DAILY 05/07/17 Ondansetron [Zofran *Odt*] 8 mg SL PRN PRN 05/07/17 This patient is new to me today: Yes Date on this admission: 05/08/17 Emergency Visit: No Critical Care patient: No - Discharge Referral Referred to [facility] No
== END 2017-05-08 13:22 | disposition short-term general hospital (02) | DRG 54 ==
LOC: FER 08:56 → J4S 17:10
PROVIDERS: ADMIT Internal Medicine; ATTEND Internal Medicine
DX: G43.409 Hemiplegic migraine, not intractable, without status migrainosus (principal); M32.9 Systemic lupus erythematosus, unspecified
CPT/HCPCS: 36415; 70450-TC; 71045-TC-FY; 80053; 81003; 81015; 83735; 84100; 84703; 85025; 85651; 93005; 93010; 99284-25; J7517

== ENCOUNTER 2017-06-21 08:40 | Emergency (ER) | payer OTHER ==
[2017-06-21 08:56] VITALS: BP 111/48; PULSE 72; TEMP 97.6; BMI 24.1
--- NOTE | 2017-06-21 09:01 | PDOC ---
History of Present Illness - General Chief Complaint: Pain Stated Complaint: LOWER BACK PAIN Time Seen by Provider: 06/21/17 08:41 History Source: Patient Exam Limitations: No Limitations - History of Present Illness Initial Comments: 06/21/17 08:59 27 yo F c/ hx of hemiplegic migraines, lupus on cellcept p/w lower back pain. Pt was exercising in [employer]. Was attempting to deadlift ~ 180 lbs. However, pt felt her back giveout. Denies any numbness, weakness, urinary or bowel incontinence. Stated that any movement of her lower back was causing more pain. Has taken naproxen but with little relief. Because of persistent pain, came into ED for an evaluation. Past History - Past Medical History Allergies/Adverse Reactions: Allergies Allergy/AdvReac Type Severity Reaction Status Date / Time furosemide [From Lasix] Allergy Severe Anphylactoid Verified 05/07/17 08:58 Reaction. Sulfa (Sulfonamide Allergy Mild Verified 06/21/17 08:42 Antibiotics) Home Medications: Ambulatory Orders Mycophenolate Mofetil [Cellcept] 1,000 mg PO BID 05/07/17 Naproxen 500 mg PO BID PRN #20 tablet 06/21/17 Oxycodone HCl/Acetaminophen [Percocet 5-325 mg Tablet] 1 tab PO Q6H PRN #12 tablet MDD 4 06/21/17 Topiramate [Topamax] 1 tab PO BID 06/21/17 COPD: No - Immunization History Td Vaccination: Yes Immunization Up to Date: Yes - Suicide/Smoking/Psychosocial Hx Smoking Status: No Smoking History: Never smoked Have you smoked in the past 12 months: No Number of Cigarettes Smoked Daily: 0 Hx Alcohol Use: No Drug/Substance Use Hx: No Substance Use Type: None Review of Systems - Review of Systems Able to Perform ROS?: Yes Comments:: 06/21/17 09:00 GENERAL/CONSTITUTIONAL: No fever, weakness. HEAD, EYES, EARS, NOSE AND THROAT: No change in vision. No ear pain or discharge. No sore throat. CARDIOVASCULAR: No chest pain or shortness of breath. RESPIRATORY: No cough, wheezing, or hemoptysis. GASTROINTESTINAL: No abdominal pain, nausea, vomiting, diarrhea, or decreased PO intolerance. GENITOURINARY: No dysuria, frequency, or change in urination. MUSCULOSKELETAL: No joint or muscle swelling or pain. + lower back pain. SKIN: No rash NEUROLOGIC: No headache, vertigo, loss of consciousness, or change in strength/ sensation. ENDOCRINE: No increased thirst. No abnormal weight change. HEMATOLOGIC/LYMPHATIC: No anemia, easy bleeding, or history of blood clots. ALLERGIC/IMMUNOLOGIC: No hives or skin allergy. *Physical Exam - Physical Exam Comments: 06/21/17 09:00 GENERAL: Awake, alert, and fully oriented, in no acute distress. HEAD: No signs of trauma EYES: PERRLA, EOMI, sclera anicteric, conjunctiva clear ENT: Auricles normal inspection, hearing grossly normal, nares patent NECK: Normal ROM, supple EXTREMITIES: Normal range of motion, no edema. No clubbing or cyanosis. No cords, erythema, or tenderness. BACK: TTP ~L5. no stepoffs noted. negative SLR bilaterally. NEUROLOGICAL: Cranial nerves II through XII grossly intact. Normal speech, normal gait. Sensation intact in the lower extremities bilaterally. SKIN: Warm, Dry, normal turgor, no rashes or lesions noted. ED Treatment Course - RADIOLOGY Radiology Studies Ordered: Category Date Time Status SPINE- LUMBAR W/OB [RAD] Stat Radiology 06/21/17 08:55 Ordered Medical Decision Making - Medical Decision Making 06/21/17 09:01 R/o lower back disc herniation. No clinical signs of cord compression or cauda equina. Lumbar radiograph. Pt declines urine test. States she has IUD and is on teratogenic drugs. She is willing to consent for radiograph without UPT. 06/21/17 10:07 Xray negative for fractures. Will give referral to a spine surgeon. Discharge diagnosis: lower back pain I discussed the physical exam findings, ancillary test results and final diagnoses with the patient. I answered all of the patient's questions. The patient was satisfied with the care received and felt comfortable with the discharge plan and treatment plan. The patient will call their primary care physician within 24 hours to arrange follow-up and will return to the Emergency Department with any new, persistant or worsening symptoms. *DC/Admit/Observation/Transfer Diagnosis at time of Disposition: Back pain Qualifiers: Back pain location: low back pain Chronicity: acute Back pain laterality: midline Sciatica presence: without sciatica Qualified Code(s): M54.5 - Low back pain - Discharge Dispostion Disposition: HOME Condition at time of disposition: Stable Admit: No - Prescriptions Prescriptions: Naproxen 500 mg PO BID PRN #20 tablet PRN Reason: Pain Oxycodone HCl/Acetaminophen [Percocet 5-325 mg Tablet] 1 tab PO Q6H PRN #12 tablet MDD 4 PRN Reason: Pain - Referrals Referrals: Duncan Figueroa MD [Staff Physician] - - Patient Instructions Printed Discharge Instructions: DI for Low Back Pain, Back Pain (Alternative Therapy) Additional Instructions: Your xrays show no acute findings. For pain, take 500 mg naproxen every 12 hours as needed for pain. For additional relief, take 1 tablet of percocet every 6 to 8 hours as needed. Please do not drink alcohol or drive on this medication, as this medication may make you drowsy. Drink plenty of fluids and rest. You may use heating packs on your lower back for symptom relief. It may take several days before your symptoms improve. Please refrain from doing any heavy physical activity until your pain is improved. If your pain persists for more than a week, please call your doctor or make an appointment with the spine doctor here at [place]. - Post Discharge Activity
== END 2017-06-21 10:45 | disposition home or self-care (01) ==
LOC: FER 08:40
DX: M54.5 Low back pain (principal); Z88.2 Allergy status to sulfonamides
CPT/HCPCS: 72100-TC-FY; 99282-25

== ENCOUNTER 2017-10-20 17:33 | Emergency (ER) | payer OTHER ==
[2017-10-20 17:41] VITALS: BMI 23.8
--- NOTE | 2017-10-20 19:32 | PDOC ---
History of Present Illness - General Chief Complaint: Weakness Stated Complaint: WEAKNESS Time Seen by Provider: 10/20/17 19:31 History Source: Patient, Old Records Exam Limitations: No Limitations - History of Present Illness Initial Comments: 10/20/17 19:32 HISTORY OF PRESENT ILLNESS: 27-year-old woman with past medical history of SLE, complex hemiplegic migraines presents emergency Department with generalized weakness and fatigue for the past 3 days. Patient was seen and evaluated by an ENT specialist and told she had a pharyngitis and was started on Ceftin on . Patient states the day after starting this afternoon she developed a rash on her upper chest for which she took Benadryl. Patient states after taking the Benadryl the rash subsided and has not returned with subsequent doses of Ceftin. Patient states he began to feel better on Friday and went to the gym to perform crossfit exercises yesterday. Patient reports decreased oral intake after exercising. Patient states while in the emergency department she began to experience some left-sided facial numbness which she attributes to her usual migraine pattern. No recent travel or sick contacts. PAST MEDICAL HISTORY: Complex hemiplegic migraines, SLE FAMILY HISTORY: Denies SOCIAL HISTORY: Occupation: nurse. Denies tobacco, alcohol, illicit drug use. SURGICAL HISTORY: Denies ALLERGIES: No known drug allergies REVIEW OF SYSTEMS General/Constitutional: Denies fever or chills. Generalized weakness. No weight change. HEENT: Denies change in vision. Denies ear pain or discharge. Denies sore throat. Cardiovascular: Denies chest pain or shortness of breath. Respiratory: Denies cough, wheezing, or hemoptysis. Gastrointestinal: Denies nausea, vomiting, diarrhea or constipation. Denies rectal bleeding. Genitourinary: Denies dysuria, frequency, or change in urination. Musculoskeletal: Denies joint or muscle swelling or pain. Denies neck or back pain. Skin and breasts: Denies rash or easy bruising. Neurologic: Denies headache, vertigo, loss of consciousness, or loss of sensation. Psychiatric: Denies depression or anxiety. Endocrine: Denies increased thirst. Denies abnormal weight change. Hematologic/Lymphatic: Denies anemia, easy bleeding, or history of blood clots. Allergic/Immunologic: Denies hives or skin allergy. Denies latex allergy. PHYSICAL EXAM General Appearance: Well-appearing, appropriately dressed. No apparent distress , no intoxication. HEENT: EOMI, PERRLA, normal ENT inspection, normal voice, TMs normal, pharynx normal. No conjunctival pallor. No photophobia, scleral icterus. Neck: Supple. Trachea midline. No tenderness, rigidity, carotid bruit, stridor or thyromegaly. Nontender anterior cervical lymphadenopathy present Respiratory/Chest: Lungs CTAB. No shortness of breath, chest tenderness, respiratory distress, accessory muscle use. No crackles, rales, rhonchi, stridor , wheezing, dullness Cardiovascular: RRR. S1, S2. No JVD, murmur, bradycardia, tachycardia. Vascular Pulses: Dorsalis-Pedis (R): 2+, Dorsalis-Pedis (L): 2+ Gastrointestinal/Abdominal: Normal bowel sounds. Abdomen soft, non-distended. No tenderness or rebound tenderness. No organomegaly, pulsatile mass, guarding, hernia, hepatomegaly, splenomegaly. Lymphatic: No adenopathy, tenderness. Musculoskeletal/Extremities: Normal inspection. FROM of all extremities, normal capillary refill. Pelvis Stable. No CVA tenderness. No tenderness to extremities, pedal edema, swelling, erythema or deformity. Integumentary: Appropriate color, dry, warm. No cyanosis, erythema, jaundice or rash Neurologic: sustainability project coordinator II-XII intact. Fully oriented, alert. Appropriate mood/affect. Motor strength 5/5. No appreciable EOM palsy, facial droop. Decreased sensation to left face along all distributions of the trigeminal nerve Past History - Past Medical History Allergies/Adverse Reactions: Allergies Allergy/AdvReac Type Severity Reaction Status Date / Time furosemide [From Lasix] Allergy Severe Anphylactoid Verified 10/20/17 17:38 Reaction. Sulfa (Sulfonamide Allergy Mild Verified 10/20/17 17:38 Antibiotics) Home Medications: Ambulatory Orders Mycophenolate Mofetil [Cellcept] 1,000 mg PO BID 05/07/17 Naproxen 500 mg PO BID PRN #20 tablet 06/21/17 Oxycodone HCl/Acetaminophen [Percocet 5-325 mg Tablet] 1 tab PO Q6H PRN #12 tablet MDD 4 06/21/17 Topiramate [Topamax] 1 tab PO BID 06/21/17 COPD: No Other medical history: MIGRAINES, LUPUS - Immunization History Td Vaccination: Yes Immunization Up to Date: Yes - Suicide/Smoking/Psychosocial Hx Smoking Status: No Smoking History: Never smoked Have you smoked in the past 12 months: No Number of Cigarettes Smoked Daily: 0 Information on smoking cessation initiated: No Hx Alcohol Use: No Drug/Substance Use Hx: No Substance Use Type: None *Physical Exam - Vital Signs Last Vital Signs Temp Pulse Resp BP Pulse Ox 98.3 F 61 18 112/51 100 10/20/17 17:39 10/20/17 17:39 10/20/17 17:39 10/20/17 17:39 10/20/17 17:39 ED Treatment Course - LABORATORY CBC & Chemistry Diagram: 10/20/17 20:38 10/20/17 20:38 Medical Decision Making - Medical Decision Making 10/20/17 20:06 A/P: 27-year-old woman with history of complex hemiplegic migraines and SLE with generalized weakness and left-sided facial numbness Physical exam is within normal limits with the exception of decreased sensation to left sided trigeminal nerve all branches DDx: Sepsis, ICH, migraine, lupus flare Sepsis less likely given patient does not meet SIRS criteria at this time but does have a source with an acute tonsillitis. Labs, CT, x-ray, EKG, reassess 10/20/17 22:11 Patient developed stuttering and left sided hemiplegia. Exam is consistent with her usual presentation for diplegic migraines. Patient taken to CT scan for immediate imaging. 10/20/17 23:[address] as read by Dr. Hernandez: No CT evidence of acute intracranial pathology. There is been no definite interval change in comparison to prior CT exams of and 12/27/15. 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 Case discussed with Dr. Trujillo at [facility] was a neurologist to accept patient for ED to ED transfer. *DC/Admit/Observation/Transfer Diagnosis at time of Disposition: Hemiplegic migraine Qualifiers: Status migrainosus presence: with status migrainosus Intractability: not intractable Qualified Code(s): G43.401 - Hemiplegic migraine, not intractable, with status migrainosus - Discharge Dispostion Disposition: TRANSFER ACUTE CARE/OTHER HOSP Condition at time of disposition: Fair - Referrals Referrals: ON STAFF,NOT [Primary Care Provider] - - Patient Instructions - Post Discharge Activity - Transfer to Acute Care Facility Receiving Facility: [facility]. Accepting Physician:: Ronnie Syed comment: 10/20/17 23:18 ED->ED
[2017-10-20] MEDS ORDERED: METOCLOPRAMIDE HCL INJECTION 10 MG/2 ML VIAL IVPUSH ONE (19:53)
[2017-10-20] MEDS ORDERED: SODIUM CHLORIDE 1,000 ML IV SCH (20:00)
--- NOTE | 2017-10-20 20:05 | PDOC ---
*Physical Exam - Vital Signs Last Vital Signs Temp Pulse Resp BP Pulse Ox 98.3 F 61 18 112/51 100 10/20/17 17:39 10/20/17 17:39 10/20/17 17:39 10/20/17 17:39 10/20/17 17:39 ED Treatment Course - LABORATORY CBC & Chemistry Diagram: 10/20/17 20:38 10/20/17 20:38 Medical Decision Making - Medical Decision Making 10/20/17 20:05 agree with care from ELVIRA Frazier *DC/Admit/Observation/Transfer Diagnosis at time of Disposition: Hemiplegic migraine - Discharge Dispostion Disposition: TRANSFER ACUTE CARE/OTHER HOSP Condition at time of disposition: Fair - Referrals Referrals: ON STAFF,NOT [Primary Care Provider] - - Patient Instructions - Post Discharge Activity
[2017-10-20 20:51] LABS: BASO % 1.2 % (0-2.0); EOS % 1.4 % (0-4.5); HEMATOCRIT 40.5 % (32.4-45.2); HEMOGLOBIN 12.9 GM/dL (10.7-15.3); LYMPH % 27.8 % (8-40); MCH 26.3 pg (25.7-33.7); MCHC 31.9 g/dl (32.0-36.0); MEAN CELL VOLUME 82.4 fl (80-96); MEAN PLT VOLUME 9.2 fl (7.5-11.1); MONO % 6.9 % (3.8-10.2); NEUT % 62.7 % (42.8-82.8); PLATELET COUNT 223 K/MM3 (134-434); RBC 4.91 M/mm3 (3.60-5.2); RDW 14.7 % (11.6-15.6); WHITE BLOOD COUNT 7.3 K/mm3 (4.0-10.0)
[2017-10-20 21:11] LABS: ALBUMIN 3.6 g/dl (3.4-5.0); ANION GAP 8 MMOL/L (8-16); BILIRUBIN,TOTAL 0.3 mg/dL (0.2-1.0); BLOOD UREA NITROGEN 26 mg/dL (7-18); CALCIUM 8.5 mg/dL (8.5-10.1); CHLORIDE 112 mmol/L (98-107); CO2 25 mmol/L (21-32); GLUCOSE,RANDOM 87 mg/dL (74-106); SGPT/ALT 18 U/L (12-78); SODIUM 145 mmol/L (136-145); TOT PROT 6.1 g/dl (6.4-8.2)
[2017-10-20 21:14] LABS: ALK PHOS 56 U/L (45-117); INR 1.1 (0.83-1.09); PROTHROMBIN TIME (PATIENT) 12.4 SEC (9.7-13.0)
[2017-10-20 21:17] LABS: SGOT/AST 17 U/L (15-37)
[2017-10-20] MEDS ORDERED: ONDANSETRON 4 MG/2 ML VIAL ONE (21:45)
[2017-10-20] MEDS ORDERED: ONDANSETRON 4 MG/2 ML VIAL IVPUSH ONE (21:52)
[2017-10-20] MEDS ORDERED: KETOROLAC TROMETHAMINE 30 MG/1 ML VIAL IVPUSH ONE (21:52)
[2017-10-20] MEDS ORDERED: TRIMETHOBENZAMIDE HCL 200MG/2ML INJ IM ONE (23:05)
[2017-10-21] MEDS ORDERED: MORPHINE SULFATE 2 MG/ML VIAL IVPUSH ONE (00:54)
[2017-10-21] MEDS ORDERED: MORPHINE SULFATE 2 MG/ML VIAL ONE (01:45)
[2017-10-21 03:00] VITALS: BP 102/55; PULSE 59; TEMP 98.1
--- NOTE | 2017-10-21 09:45 | EKG ---
Test Reason : Blood Pressure : / mmHG Vent. Rate : 059 BPM Atrial Rate : 059 BPM P-R Int : 144 ms QRS Dur : 094 ms QT Int : 426 ms P-R-T Axes : 062 035 011 degrees QTc Int : 421 ms SINUS BRADYCARDIA WITH MARKED SINUS ARRHYTHMIA OTHERWISE NORMAL ECG WHEN COMPARED WITH ECG OF 08-MAY-2017 08:19, NO SIGNIFICANT CHANGE WAS FOUND Confirmed by Russ Lopez MD ([id number]) on 10/21/2017 9:45:01 AM Referred By: Confirmed By:Russ Lopez MD
== END 2017-10-21 01:55 | disposition short-term general hospital (02) ==
LOC: JER 17:33
PROC: 3E0337Z Introduction of Electrolytic and Water Balance Substance into Peripheral Vein, Percutaneous Approach (ICD-10-PCS; principal; 2017-10-20)
PROC: 3E023GC Introduction of Other Therapeutic Substance into Muscle, Percutaneous Approach (ICD-10-PCS; 2017-10-20)
PROC: 3E033GC Introduction of Other Therapeutic Substance into Peripheral Vein, Percutaneous Approach (ICD-10-PCS; 2017-10-20)
DX: G43.401 Hemiplegic migraine, not intractable, with status migrainosus (principal); M32.9 Systemic lupus erythematosus, unspecified
CPT/HCPCS: 36415; 70450-TC; 80053; 82550; 83605; 84484; 84703; 85025; 85610; 86850; 86900; 86901; 93005; 93010; 99284-25; J7030